=== PATIENT | male | born 1940 | race Caucasian/White ===

== ENCOUNTER 2016-11-12 06:29 | Day surgery (SDC) | payer MEDICARE, OTHER ==
--- NOTE | ~2016-11-12 | EGD ---
EGD REPORT [facility] [address] [place] [address] NAME: YADI ALLRED : [birth year] STATUS : REG [facility]#: [id number] AGE: 76 ADM/REG DATE : 11/12/16 MR#: [id number] REPORT SERV DATE: 11/12/16 DICTATED BY: TRAVIS ASTUDILLO DATE: 11/12/16 REPORT STATUS : Draft TRANS[facility]IBED BY: [facility] DATE: 11/12/16 [facility] Patient Name: Yadi Allred Date of : 1940 Attending MD: TRAVIS ASTUDILLO MD Procedure Date No Time: 11/12/2016 Procedure: Colonoscopy Indications: Follow-up for history of adenomatous polyps in the colon, Last colonoscopy: October 2010, History of lymphoma Referring MD: JENNA CÁRDENAS III, MD, KM CARLTON Medicines: Propofol per Anesthesia Complications: No immediate complications. Estimated blood loss: None. Procedure: Pre-Anesthesia Assessment: - After reviewing the risks and benefits, the patient was deemed in satisfactory condition to undergo the procedure. - Prior to the procedure, a History and Physical was performed, and patient medications and allergies were reviewed. The patient's tolerance of previous anesthesia was also reviewed. The risks and benefits of the procedure and the sedation options and risks were discussed with the patient. All questions were answered, and informed consent was obtained. Prior Anticoagulants: The patient has taken Eliquis, last dose was 3 days prior to procedure. ASA Grade Assessment: III - A patient with severe systemic disease. After reviewing the risks and benefits, the patient was deemed in satisfactory condition to undergo the procedure. After I obtained informed consent, the scope was passed under direct vision. Throughout the procedure, the patient's blood pressure, pulse, and oxygen saturations were monitored continuously. The CF [id number] was introduced through the anus and advanced to the cecum, identified by appendiceal orifice and ileocecal valve. The colonoscopy was somewhat difficult due to significant looping. Successful completion of the procedure was aided by applying abdominal pressure. The appendiceal orifice was photographed. The patient tolerated the procedure well. The quality of the bowel preparation was adequate. The bowel preparation used was polyethylene glycol (PEG). Scope withdrawal time was greater than 13 minutes. Findings: EGD REPORT [place] [id number] [facility] [place]. [address] NAME: YADI ALLRED : [birth year] STATUS : REG [facility]#: [id number] AGE: 76 ADM/REG DATE : 11/12/16 MR#: [id number] REPORT SERV DATE: 11/12/16 DICTATED BY: TRAVIS ASTUDILLO DATE: 11/12/16 REPORT STATUS : Draft TRANSCRIBED BY: [facility] DATE: 11/12/16 The perianal and digital rectal examinations were normal. Pertinent negatives include normal sphincter tone. Non-bleeding internal hemorrhoids were found during retroflexion and were small and Grade I (internal hemorrhoids that do not prolapse). Multiple small and large-mouthed diverticula were found in the entire colon but were most concentrated in the sigmoid colon. A sessile polyp was found at the appendiceal orifice. The polyp was 4 mm in size. Biopsies were taken with a cold forceps for histology. Estimated blood loss: none. The polylp could not be removed completely due to extreme angulation of the colonoscope and the fact that it was retracting into the appendix. The exam was otherwise without abnormality. Impression: - Non-bleeding internal hemorrhoids. - Moderate diverticulosis in the entire examined colon but worse in the sigmoid colon. - One 4 mm polyp at the appendiceal orifice. Biopsied. - The examination was otherwise normal. - Left inguinal hernia. Recommendation: - Discharge patient to home (ambulatory). - High fiber diet indefinitely. - Continue present medications. - Resume Eliquis at prior dose tomorrow. - Await pathology results. - Repeat colonoscopy in 5 years for surveillance if general health remains good. - Patient has a contact number available for emergencies. The signs and symptoms of potential delayed complications were discussed with the patient. Return to normal activities tomorrow. Written discharge instructions were provided to the patient. Procedure Code(s): --- Professional --- 12989, Colonoscopy, flexible, proximal to splenic flexure; with biopsy, single or multiple Diagnosis Code(s): --- Professional --- K64.0, First degree hemorrhoids K57.30, Diverticulosis of large intestine without perforation or abscess without bleeding D12.1, Benign neoplasm of appendix Z86.010, Personal history of colonic polyps CPT copyright 2013 [employer]. All rights reserved. EGD REPORT [facility] [address] [facility] [place]. [address] NAME: YAID ALLRED : [birth year] STATUS : REG [facility] PAT#: [id number] AGE: 76 ADM/REG DATE : 11/12/16 MR#: [id number] REPORT SERV DATE: 11/12/16 DICTATED BY: TRAVIS ASTUDILLO DATE: 11/12/16 REPORT STATUS : Draft TRANSCRIBED BY: [employer] DATE: 11/12/16 The codes documented in this report are preliminary and upon water supply technician review may be revised to meet current compliance requirements. TRAVIS ASTUDILLO MD 11/12/2016 8:48 AM This report has been signed electronically. Number of Addenda: 0 Note Initiated On: 11/12/2016 8:10 AM Scope Withdrawal Time 0 hours 13 minutes 56 seconds [address] [place], [place] [id number]
[~2016-11-12 06:29] MED LIST: AMB10 PO; ASA5GR PO; ASAB PO; ATV1 PO; AUG875 PO; BETAPACE80 PO; CELEBREX2 PO; CENTRUM PO; DSS PO; ELIQUIS 5 MG TAB5 MG PO; FISH-EPA1000 MG PO; FLOMAX4 PO; HALF81 PO; LIPITOR40 PO; LOP25 PO; MIRALAX POWDER1 PKT PO; MOBIC15 MG PO; MOBIC7.5 PO; NATURA2 OPH; NITROSTAT0.4 MG SL; PEP20 PO; PLAVIX PO; PRAVACHOL40 MG PO; PRILO PO; PRILOSEC40 MG PO; PRIN5 PO; PROSCAR5 PO; RITUXAN IV; SYSTANE OPH; TOPXL25 PO; ULTRAM50 PO; VIT B-SIX 50 MG50 MG PO; VITAMIN B PO; ZOCOR40 PO; ZOSYN375 IV
[2017-02-19] MEDS ORDERED: PRILO PO (18:44)
[2017-02-19] MEDS ORDERED: FISH-EPA1000 MG PO (18:44)
[2017-02-19] MEDS ORDERED: TOPXL25 PO (18:45)
[2017-02-19] MEDS ORDERED: BETAPACE80 PO (18:45)
[2017-02-19] MEDS ORDERED: RITUXAN IV (18:45)
[2017-02-19] MEDS ORDERED: HYPOTEARS OPH (18:45)
[2017-02-19] MEDS ORDERED: PROSCAR5 PO (18:46)
[2017-02-19] MEDS ORDERED: ELIQUIS 5 MG TAB5 MG PO (18:46)
[2017-02-19] MEDS ORDERED: LIPITOR40 PO (18:46)
[2017-02-20] MEDS ORDERED: PCET PO (10:40)
== END 2016-11-12 23:59 | disposition home or self-care (01) ==
LOC: DMU 06:29
PROVIDERS: Internal Medicine Gastroenterology
PROC: 0DBH8ZX Excision of Cecum, Via Natural or Artificial Opening Endoscopic, Diagnostic (ICD-10-PCS; principal; 2016-11-12 08:00)
DX: K64.0 First degree hemorrhoids (principal); K57.30 Diverticulosis of large intestine without perforation or abscess without bleeding; I10 Essential (primary) hypertension; I48.0 Paroxysmal atrial fibrillation; I25.10 Atherosclerotic heart disease of native coronary artery without angina pectoris; K21.9 Gastro-esophageal reflux disease without esophagitis; C85.90 Non-Hodgkin lymphoma, unspecified, unspecified site; Z86.010 Personal history of colon polyps; Z79.82 Long term (current) use of aspirin; Z79.899 Other long term (current) drug therapy; Z98.41 Cataract extraction status, right eye; Z98.42 Cataract extraction status, left eye; Z90.49 Acquired absence of other specified parts of digestive tract; Z98.890 Other specified postprocedural states
CPT/HCPCS: 88305